=== PATIENT | male | born 1995 ===

== ENCOUNTER 2016-11-27 21:47 | Emergency (ER) | payer SELFPAY ==
[2016-11-27] MEDS ORDERED: IBUPROFEN 600 MG TABLET ONE (23:11)
[2016-11-27] MEDS ORDERED: ACETAMINOPHEN 325 MG TABLET ONE (23:12)
--- NOTE | 2016-11-28 07:06 | RAD ---
CHEST - 2 VIEWS COMPARISON: None. HISTORY: Cough for 10 days. FINDINGS: Views: Frontal and lateral chest Lungs: Normal Heart and vessels: Normal Trachea and bronchi: Normal Mediastinum and kavon: Normal Costophrenic sulci: Normal Chest wall and bones: Normal. Upper abdomen: Normal. IMPRESSION: Negative 2 view chest.
== END 2016-11-27 23:47 | disposition home or self-care (01) ==
LOC: ED 21:47
DX: R07.9 Chest pain, unspecified (principal); B34.9 Viral infection, unspecified